=== PATIENT | female | born 1980 | race Caucasian/White ===

== ENCOUNTER 2016-06-20 13:45 | Inpatient (IN) | payer OTHER ==
[~2016-06-20] VITALS: Ht 160 cm; Wt 49.9 kg
--- NOTE | 2016-06-20 13:45 | NUR ---
Patient BIBA ACLS accompanied by [place] GONS[place] and [employer] [employer], transferred to bed 1. RN evaluating patient at bedside.
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
--- NOTE | 2016-06-20 13:51 | NUR ---
Dr. Tate evaluating patient at bedside.
[2016-06-20 13:52] VITALS: BP 107/46
[2016-06-20 14:16] LABS: BASOPHILS # (AUTO) 0.3 K/uL (0.00-0.22); BASOPHILS % (AUTO) 2.9 % (0.0-2.0); EOSINOPHILS # (AUTO) 0.2 K/uL (0-0.4); EOSINOPHILS % (AUTO) 2.4 % (0.0-4.0); HEMOGLOBIN 8.5 g/dL (12.0-16.0); LYMPHOCYTES % (AUTO) 33.6 % (20.5-51.1); MEAN CORPUSCULAR HEMOGLOBIN 20 pg (27-31); MEAN CORPUSCULAR HGB CONC 30 g/dL (33-37); MEAN CORPUSCULAR VOLUME 66 fL (80-94); MONOCYTES # (AUTO) 0.7 K/uL (0.8-1.0); MONOCYTES % (AUTO) 8.1 % (1.7-9.3); NEUTROPHILS # (AUTO) 4.9 K/uL (1.8-7.7); PLATELET COUNT (AUTO) 432 K/uL (140-450); RED BLOOD CELL COUNT(AUTO) 4.23 MIL/uL (4.20-5.40); RED CELL DISTRIBUTION WIDTH 18.6 % (11.6-13.7); WHITE BLOOD COUNT (AUTO) 9.1 K/uL (4.8-10.8)
[2016-06-20 14:22] LABS: CALCIUM 8.2 mg/dL (8.5-10.1); CARBON DIOXIDE 27.8 mmol/L (21-32); CHLORIDE 102 mmol/L (98-107); CREATININE 0.7 mg/dL (0.6-1.3); GFR ARICAN-AMERICAN 123 mL/min (>90); GFR NON ARICAN-AMERICAN 102 mL/min (>90); GLUCOSE 89 mg/dL (74-106); POTASSIUM 3.8 mmol/L (3.5-5.1); SODIUM SERUM 137 mmol/L (136-145); UREA NITROGEN, BLOOD 17 mg/dL (7-18)
[2016-06-20 14:29] LABS: ACETAMINOPHEN < 0.5 ug/ml (10-30); ALANINE AMINOTRANSFERASE 22 U/L (12-78); ALBUMIN 3.2 g/dL (3.4-5.0); ALCOHOL, BLOOD < 3 mg/dL (<3); ALKALINE PHOSPHATASE 55 U/L (46-116); ASPARTATE AMINOTRANSFERASE 23 U/L (15-37); SALICYLATE < 2.8 mg/dL (2.8-20.0); TOTAL BILIRUBIN 0.3 mg/dL (0.0-1.0); TOTAL PROTEIN, SERUM 6.8 g/dL (6.4-8.2)
[2016-06-20 14:31] LABS: ANISOCYTOSIS 1+
[2016-06-20 14:36] LABS: APPEARANCE,URINE HAZY (CLEAR); BILIRUBIN,URINE NEGATIVE (NEGATIVE); BLOOD, URINE NEGATIVE (NEGATIVE); COLOR,URINE YELLOW (YELLOW); LEUKOCYTE ESTERASE ,URINE NEGATIVE (NEGATIVE); NITRITE, URINE NEGATIVE (NEGATIVE); PH,URINE 7.5 (5.0-9.0); PROTEIN,URINE NEGATIVE (NEGATIVE); UGLUCOSE NEGATIVE (NEGATIVE); UROBILINOGEN,URINE 0.2 EU/dL (0.2 - 1)
[2016-06-20 14:38] LABS: BACTERIA,URINE RARE /HPF (None Seen); RBC,URINE 0-3 /HPF (0-5); SQUAMOUS EPITHELIAL CELL,UR 0-3 /LPF (0-3 (FEW)); WBC,URINE 0-3 /HPF (0-5)
[2016-06-20 14:39] LABS: URINE AMORPHOUS PHOSPHATES 3+ /HPF (None Seen)
[2016-06-20 14:43] LABS: AMPHETAMINE, URINE POS. ng/ml (NEG <=1000); BARBITURATE, URINE NEG. ng/ml (NEG <=200); BENZODIAZEPINE, URINE NEG. ng/mL (NEG <=200); CANNABINOID, URINE POS. ng/mL (NEG <=50); COCAINE, URINE NEG. ng/mL (NEG <=300); OPIATE, URINE NEG. ng/mL (NEG <=2000); PHENCYCLIDINE SCREEN,URINE NEG. ng/mL (NEG <=25)
--- NOTE | 2016-06-20 15:05 | NUR ---
PT APPEARS TO BE SLEEPING COMFORTABLY IN BED; VSS; RR EVEN/UNLABORED AT THIS TIME. WILL CONTINUE TO MONITOR.
--- NOTE | 2016-06-20 15:08 | NUR ---
FOOD TRAY PROVIDED TO PT AT THIS TIME.
[2016-06-20] MEDS ORDERED: DOXA2TAB1 PO (15:15)
[2016-06-20] MEDS ORDERED: ISOS30TE35 PO (15:15)
[2016-06-20] MEDS ORDERED: ATEN50TA8 PO (15:15)
[2016-06-20] MEDS ORDERED: LISI5TAB18 PO (15:15)
[2016-06-20] MEDS ORDERED: GLIP10TA3 PO (15:15)
--- NOTE | 2016-06-20 16:02 | NUR ---
PT APPEARS TO BE RESTING COMFORTABLY IN BED; VSS AT THIS TIME; WILL CONTINUE TO MONITOR.
--- NOTE | 2016-06-20 17:00 | NUR ---
Patient appears to be resting comfortably in bed. Vital Signs within normal limits. Respirations even and unlabored. WILL CONTINUE TO MONITOR.
--- NOTE | 2016-06-20 17:05 | NUR ---
CALLED MED SURG FOR REPORT; MED SURG STATED ROOM NOT READY; STATED WILL CALL BACK FOR REPORT.
--- NOTE | 2016-06-20 17:17 | NUR ---
REPORT GIVEN TO DAMARIS THACKER AT THIS TIME; KEDAR STATED WILL CALL BACK ONCE ROOM IS CLEAN TO BRING PT DOWN ANOTHER PT RECENTLY DISCHARGED; WILL CONTINUE TO MONITOR.
--- NOTE | 2016-06-20 18:18 | NUR ---
CALLED TO CHECK ON AVAILABILITY OF ROOM; MED SURG STATES STILL CLEANING ROOM; WILL CALL BACK WHEN ROOM IS READY.
--- NOTE | 2016-06-20 18:36 | NUR ---
Patient will be admitted to care of DR. LISSET KUHN CONSULT DR. LUJAN'S GROUP. Admited to M/S WITH 1:1 SITTER. Will go to room 123B. Belongings list completed. Report to DAMARIS CORTES.
--- NOTE | 2016-06-20 18:40 | NUR ---
RECEIVED FROM ER VIA WHEELCHAIR. AWAKE, ALERT, AND ORIENTED X3. SPEECH CLEAR. NO C/O PAIN. NO SOB, NOTED. CALM, QUIET, AND COOPERATIVE. NO SUICIDAL THOUGHTS OBSERVED. KEEP COMFORTABLE ON BED. CLOSELY WATCHED BY FIFI PINEDO 1:1. SEIZURE AND FALL PRECAUTION APPLIED. WILL ENDORSE TO [facility] NURSE FOR COMPLETE ADMISSION PROCESS. INFORMED CHARGE NURSE CARRILLO DICK.
[2016-06-20 18:53] LABS: INR 1.1 (0.8-1.2); PARTIAL THROMBOPLASTIN TIME 27.1 secs (22-35.6); PROTHROMBIN TIME 10.8 secs (10.8-13.4)
[2016-06-20 19:05] LABS: FREE T4 (FREE THYROXINE) 1.04 ng/dL (0.76-1.46); THYROID STIMULATING HORMONE 3.39 uIU/mL (0.34-3.76)
--- NOTE | 2016-06-20 19:08 | NUR ---
BEDSIDE REPORT GIVEN TO NAHED DICK. IN STABLE CONDITION. CLOSELY MONITORED BY A SITTER 1:1. ALSO ENDORSED TO ADMIT PT..
--- NOTE | 2016-06-20 19:30 | NUR ---
RECEIVED REPORT FROM DAY PARTS ROOM ASSOCIATE AT BEDSIDE, PATIENT IS AWAKE AND SITTING IN BED, ALERT AND ORIENTED X3 ON ROOM AIR, NO SOB OR SIGN OF DISTRESS AT THIS TIME, PATIENT DENIES PAIN. PATIENT IS COOPERATIVE. SKIN INTACT. DISCUSSED PLAN OF CARE WITH PATIENT, PATIENT VERBALIZED UNDERSTANDING REINFORCEMENT MAY BE NEEDED. PATIENT IS ON 5150 HOLD AND 1:1 SITTER. SAFETY MEASURES CHECKED, CALL LIGHT WITHIN REACH. WILL CONTINUE TO MONITOR.
--- NOTE | 2016-06-20 21:05 | NUR ---
PATIENT SLEEPING, NO SOB OR SIGN OF DISTRESS AT THIS TIME, CALL LIGHT WITHIN REACH. WILL CONTINUE TO MONITOR.
[2016-06-20 22:05] VITALS: BP 95/63
--- NOTE | 2016-06-20 23:00 | NUR ---
PATIENT SLEEPING, NO SOB OR SIGN OF DISTRESS AT THIS TIME, CALL LIGHT WITHIN REACH. WILL CONTINUE TO MONITOR
[2016-06-21] VITALS: BP 114/59
--- NOTE | 2016-06-21 00:10 | NUR ---
VITAL SIGNS STABLE, PATIENT SLEEPING, NO SOB OR SIGN OF DISTRESS AT THIS TIME, CALL LIGHT WITHIN REACH. WILL CONTINUE TO MONITOR
--- NOTE | 2016-06-21 02:50 | NUR ---
PATIENT SLEEPING, NO SOB OR SIGN OF DISTRESS AT THIS TIME, CALL LIGHT WITHIN REACH. WILL CONTINUE TO MONITOR.
--- NOTE | 2016-06-21 06:20 | NUR ---
ASSUMED CONTINUITY OF CARE. NO SIGNS AND SYMPTOMS OF ACUTE DISTRESS NOTED. INITIAL ASSESSMENT DONE. CALM, QUIET, COOPERATIVE. RE-ORIENTED TO EVENTS AND SURROUNDINGS. NO SUICIDAL THOUGHTS OBSERVED. KEEP COMFORTABLE ON BED. EXPLAINED DIAGNOSIS, PLAN OF CARE, PAIN MANAGEMENT TEACHING, USE OF CALL LIGHT/BED/TV/BATHROOM. VERBALIZED UNDERSTANDING. SEIZURE AND FALL PRECAUTION APPLIED. CALL LIGHT WITHIN REACH. CLOSELY MONITORED 1:1.
[2016-06-21 06:58] LABS: HEMATOCRIT 30.6 % (36-48); HEMOGLOBIN 9.2 g/dL (12.0-16.0); MEAN CORPUSCULAR HEMOGLOBIN 20 pg (27-31); MEAN CORPUSCULAR HGB CONC 30 g/dL (33-37); MEAN CORPUSCULAR VOLUME 67 fL (80-94); PLATELET COUNT (AUTO) 439 K/uL (140-450); RED BLOOD CELL COUNT(AUTO) 4.57 MIL/uL (4.20-5.40); RED CELL DISTRIBUTION WIDTH 19.1 % (11.6-13.7); WHITE BLOOD COUNT (AUTO) 7.4 K/uL (4.8-10.8)
--- NOTE | 2016-06-21 07:00 | NUR ---
ENDORSED PATIENT TO DAY PRACTICE OR STUDENT TEACHER AT BEDSIDE, PATIENT IN STABLE CONDITION, SLEEPING.
[2016-06-21 07:11] LABS: ANION GAP 10.8 (8-16); CALCIUM 7.9 mg/dL (8.5-10.1); CARBON DIOXIDE 26.3 mmol/L (21-32); CREATININE 0.5 mg/dL (0.6-1.3); POTASSIUM 4.1 mmol/L (3.5-5.1)
--- NOTE | 2016-06-21 07:12 | NUR ---
LISSET ZUNIGA CAME AND SEEN PT..
[2016-06-21 07:16] LABS: CHOL/HDL RATIO 2.7 (1-4.5); MAGNESIUM 1.8 mg/dL (1.8-2.4); PHOSPHORUS 3.3 mg/dL (2.5-4.9)
[2016-06-21 07:39] LABS: NEUTROPHILS % (MANUAL) 64 (43-65)
[2016-06-21 07:40] LABS: EOSINOPHILS % (MANUAL) 3 % (0-4); HYPOCHROMASIA 1+; LYMPHOCYTES % (MANUAL) 25 % (20-46); MONOCYTES % (MANUAL) 8 % (5-12); OVALOCYTES 1+; TARGET CELLS 1+
[2016-06-21 08:00] VITALS: BP 94/53
--- NOTE | 2016-06-21 08:00 | NUR ---
Patient's Plan of Care was discussed and reviewed with GENERAL MANAGER FOOD: KEDAR PINEDO
--- NOTE | 2016-06-21 09:33 | NUR ---
PATIENT HAS BEEN SCREENED AND CATEGORIZED LOW NUTRITION RISK. PATIENT WILL BE SEEN WITHIN 7 DAYS OF ADMISSION. 06/27/16 SERENA STEELE MBA, RD
--- NOTE | 2016-06-21 10:07 | NUR ---
PAGED DR. LUJAN AT REGARDING CONSULT. LEFT MESSAGE AND CALL BACK NUMBER. INFORMED CHARGE NURSE CARRILLO DICK.
[2016-06-21 12:00] VITALS: BP 107/66
--- NOTE | 2016-06-21 12:48 | NUR ---
PT. NON-COMPLIANT. PULLED OUT IV ACCESS ON RIGHT AC GAUGE #20. REFUSED IV INSERTION. INFORMED CHARGE NURSE CARRILLO DICK.
--- NOTE | 2016-06-21 15:10 | NUR ---
PHYSICS PROFESSOR CAME FOR PT. ECHO. CALM, QUIET, AND COOPERATIVE. NO DISTRESS NOTED.
[2016-06-21] MEDS ORDERED: QUEtiapine FUMARATE 25 MG TAB PO SCH (17:00)
--- NOTE | 2016-06-21 18:50 | NUR ---
DR. MAGANA CAME, CHECKED PT. CHART, AND SEEN PT..
--- NOTE | 2016-06-21 19:15 | NUR ---
BEDSIDE REPORT GIVEN TO NAHED MIRANDA -DAMARIS. IN STABLE CONDITION.
--- NOTE | 2016-06-21 19:30 | NUR ---
RECEIVED REPORT FROM ADONIS ICT DEVELOPMENT MANAGER AT BEDSIDE, PATIENT IS SLEEPING EASILY AROUSABLE. AAOX3, ON ROOM AIR, NO SOB OR SIGN OF DISTRESS NOTED AT THIS TIME. PATIENT IS 1:1 SITTER ON 5150 HOLD. NO IV ACCESS. DISCUSSED PLAN OF CARE, PATIENT VERBALIZED UNDERSTANDING. SKIN INTACT. PATIENT COOPERATIVE AT THIS TIME. SAFETY MEASURES CHECKED, CALL LIGHT WITHIN REACH. WILL CONTINUE TO MONITOR. VITAL SIGNS STABLE.
--- NOTE | 2016-06-21 21:30 | NUR ---
PATIENT SLEEPING, NO SOB OR SIGN OF DISTRESS, CALL LIGHT WITHIN REACH. WILL CONTINUE TO MONITOR.
[2016-06-22] VITALS: BP 100/55
--- NOTE | 2016-06-22 00:36 | NUR ---
VITAL SIGNS STABLE, PATIENT SLEEPING, EASY TO AWAKE, NO SIGN OF DISTRESS, CALL LIGHT WITHIN REACH. WILL CONTINUE TO MONITOR.
--- NOTE | 2016-06-22 01:33 | NUR ---
PATIENT SLEEPING, NO SOB OR SIGN OF DISTRESS AT THIS TIME, CALL LIGHT WITHIN REACH. WILL CONTINUE TO MONITOR.
--- NOTE | 2016-06-22 03:30 | NUR ---
PATIENT SLEEPING, NO SOB OR SIGN OF DISTRESS, CALL LIGHT WITHIN REACH. WILL CONTINUE TO MONITOR.
--- NOTE | 2016-06-22 05:00 | NUR ---
PATIENT SLEEPING, NO SOB OR SIGN OF DISTRESS AT THIS TIME, CALL LIGHT WITHIN REACH. WILL CONTINUE TO MONITOR.
[2016-06-22 06:25] LABS: ALBUMIN 3.1 g/dL (3.4-5.0); ANION GAP 12.2 (8-16); CALCIUM 8.1 mg/dL (8.5-10.1); CARBON DIOXIDE 24.1 mmol/L (21-32); CREATININE 0.6 mg/dL (0.6-1.3); POTASSIUM 4.3 mmol/L (3.5-5.1); TOTAL BILIRUBIN 0.2 mg/dL (0.0-1.0); TOTAL PROTEIN, SERUM 6.9 g/dL (6.4-8.2)
[2016-06-22 06:29] LABS: HEMATOCRIT 29.7 % (36-48); HEMOGLOBIN 8.9 g/dL (12.0-16.0); MEAN CORPUSCULAR HEMOGLOBIN 20 pg (27-31); MEAN CORPUSCULAR HGB CONC 30 g/dL (33-37); MEAN CORPUSCULAR VOLUME 68 fL (80-94); PLATELET COUNT (AUTO) 424 K/uL (140-450); RED BLOOD CELL COUNT(AUTO) 4.41 MIL/uL (4.20-5.40); RED CELL DISTRIBUTION WIDTH 19.2 % (11.6-13.7)
[2016-06-22 06:49] LABS: BAND % (MANUAL) 1 % (0-8); EOSINOPHILS % (MANUAL) 4 % (0-4); MONOCYTES % (MANUAL) 6 % (5-12)
[2016-06-22 06:50] LABS: NEUTROPHILS % (MANUAL) 55 (43-65)
[2016-06-22 06:51] LABS: LYMPHOCYTES % (MANUAL) 34 % (20-46); PLATELET ESTIMATE ADEQUATE
[2016-06-22 06:52] LABS: HYPOCHROMASIA 1+; TARGET CELLS 1+
--- NOTE | 2016-06-22 07:26 | NUR ---
ENDORSED PATIENT TO DAY RN AT BEDSIDE, PATIENT IN STABLE CONDITION
--- NOTE | 2016-06-22 07:27 | NUR ---
RECEIVED REPORT AT BEDSIDE FROM THE LENS MOLDER NURSE FOR CONTINUITY OF CARE. PT IS SLEEPING. I WILL CHECK ON HER LATER WHEN SHE IS AWAKE. NO LONGER ON 5150 HOLD. NO MORE 1:1 SITTER. NO SIGNS OF DISTRESS SLEEPING. NO IV ACCESS. WILL BE BACK TO REASSESS PT LATER.
[2016-06-22 08:00] VITALS: BP 101/65
--- NOTE | 2016-06-22 08:15 | NUR ---
PT IS AWAKE. SITTING UP AND EATING HER BREAKFAST. I INTRODUCED MYSELF, UPDATED THE BOARD. PT WAS VERY COOPERATIVE. DID HER V/S. WITHIN NORMAL RANGE. NO COMPLAINTS OF PAIN. DOES NOT WANT TO BE BOTHER TODAY. WANT TO REST. I TOLD HER I WILL TRY AND NOT DISTURB HER UNLESS IT IS ABSOLUTELY NECESSARY. WILL CONTINUE TO MONITOR HER.
[2016-06-22 09:07] LABS: T4 (THYROXINE) 7.9 ug/dL (4.5-12.0)
--- NOTE | 2016-06-22 09:32 | NUR ---
PT IS SOUND ASLEEP. NO SIGNS OF DISTRESS. WILL CONTINUE TO MONITOR PT.
[2016-06-22] MEDS ORDERED: FERR325E14 PO (09:50)
--- NOTE | 2016-06-22 10:50 | NUR ---
SAW D/C ORDER FOR PT. SPOKE WITH PT. NO FRIENDS. NO OTHER CONTACTS. I ASKED PT IF SHE NEEDED SOME CLOTHES. REQUESTED CLOTHES FROM THE CLOSET. WILL START DC PROCESS. WILL WAIT FOR CLOTHES TO BE BROUGHT UP. WILL D/C PT AFTER LUNCH. PT AWARE.
--- NOTE | 2016-06-22 11:30 | NUR ---
SECURITY BROUGHT HER CLEAN CLOTHES. PT REFUSED THEM. SHE WANTS HER CLOTHES. WE LOCATED THEM IN ER. [place], SECURITY WENT TO GO RETRIEVE THEM. 2 BAGS.
--- NOTE | 2016-06-22 11:48 | NUR ---
SS NOTE: I SPOKE WITH PT BEDSIDE. PT STATED THAT SHE HANGS OUT IN [place] AND WANTS TO GO BACK THERE UPON DISCHARGE. WHEN INQUIRING ABOUT WHETHER PT WILL GO TO THE [facility], PT REPORTED THAT THEY OPEN FOR HER WHEN SHE WANTS THEM TO OPEN. I PROVIDED PT WITH [facility], [facility] AND [facility].
--- NOTE | 2016-06-22 12:00 | NUR ---
PT WAS ESCORTED BY THE SECURITY TO THE FRONT OF THE HOSPITAL. PT HAS HER PERSONAL BELONGINGS WITH HER. PT SIGNED ALL APPROPRIATE PAPER WORK. ALL BANDS REMOVED. OFFERED HER LUNCH BUT SHE INSISTED SHE WANTED TO LEAVE. PT STABLE.
--- NOTE | 2016-06-22 15:41 | NUR ---
KVNG ANDERSON SPOKE WITH KVNG ESCALERA OF [facility] PH# [phone] TO GIVE HER A VERBAL CLINICAL UPDATE ON THE PATIENT AND TO INFORM HER THAT PATIENT IS DISCHARGED TODAY. SENT H&P, DISCHARGE SUMMARY AND CONSULTATION REPORT TO [facility] FAX# [phone]
[2016-06-23 06:18] LABS: FOLIC ACID 14.8 ng/mL (>3.0)
[2016-06-23 09:26] LABS: HEMOGLOBIN A1C 6.2 % (4.8-5.6)
== END 2016-06-22 12:00 | disposition home or self-care (01) | DRG 812 ==
LOC: MED 13:45 → MTU 17:05 → EDBD 17:05
PROVIDERS: ADMIT Family Medicine; ATTEND Family Medicine
DX: T43.621A Poisoning by amphetamines, accidental (unintentional), initial encounter (principal); N17.0 Acute kidney failure with tubular necrosis; G92 Toxic encephalopathy; Z68.1 Body mass index [BMI] 19.9 or less, adult; E44.0 Moderate protein-calorie malnutrition; F23 Brief psychotic disorder; F17.200 Nicotine dependence, unspecified, uncomplicated; F15.251 Other stimulant dependence with stimulant-induced psychotic disorder with hallucinations; D50.9 Iron deficiency anemia, unspecified; F11.90 Opioid use, unspecified, uncomplicated; F12.90 Cannabis use, unspecified, uncomplicated; F17.210 Nicotine dependence, cigarettes, uncomplicated; Z59.0 Homelessness; Y92.89 Other specified places as the place of occurrence of the external cause; Z71.51 Drug abuse counseling and surveillance of drug abuser
CPT/HCPCS: 36415; 71010; 80048; 80053; 80305; 81001; 81025; 82607; 82728; 82746; 83036; 83540; 83735; 84100; 84436; 84439; 84443; 84479; 85025; 85045; 85610; 85730; 87081; 93005; 99285; G0480; G0482; Q0092